=== PATIENT | female | born 1995 ===

== ENCOUNTER 2023-01-03 18:57 | Emergency (ER) | payer SELFPAY ==
[2023-01-03 19:00] VITALS: BP 137/78; PULSE 70; RESP 16; TEMP 36.4; O2SAT 100
== END 2023-01-03 22:42 | disposition left against medical advice (07) ==
LOC: ANHED 19:57
PROVIDERS: PCP Physician Assistant
DX: M25.561 Pain in right knee (principal)
CPT/HCPCS: 99199

== ENCOUNTER 2023-03-14 08:02 | Emergency (ER) | payer OTHER, SELFPAY ==
[2023-03-14 08:09] VITALS: BP 132/69; PULSE 81; RESP 16; TEMP 36.4; O2SAT 97
--- NOTE | 2023-03-14 08:12 | ED.URI ---
HPI - URI/Sore Throat General Chief Complaint: Upper Respiratory Infection Stated Complaint: Cough/Shortness of Breath Time Seen by Provider: 03/14/23 08:15 Source: patient, RN notes reviewed and old records reviewed Mode of arrival: ambulatory Limitations: no limitations History of Present Illness HPI Narrative: 27 year old female presents to [facility] with complaints of cough for the past 2 days with some shortness of breath stated with exertion. Respirations even and nonlabored with no tachypnea,SAO2 97% on room air, patient is nonsmoker. She states that she has been taking DayQuil, NyQuil, Sudafed and Mucinex for her symptoms. Patient reports that she has not had a fever, sore throat or any ear pain, reports post nasal drainage. MD elicited complaint: cough and other (reports some shortness of breath) Pertinent past history: asthma (as child) Onset (ago): day(s) (2) Severity: moderate Able to tolerate fluids by mouth: Yes Treatments prior to arrival: other (DayQuil, NyQuil, sudafed,Mucinex) Related Data Allergies Allergy/AdvReac Type Severity Reaction Status Date / Time No Known Allergies Allergy Verified 03/14/23 08:19 Review of Systems Review of Systems: CONSTITUTIONAL: Denies malaise, chills, sweats, or fever. EYES: Denies visual changes, redness, or discharge. ENT: Reports post nasal rhinorrhea, congestion,no sinus pain, no otalgia and no sore throat. CARDIOVASCULAR: Denies chest pain, palpitations, or edema. RESPIRATORY: Reports cough.?states some dyspnea. GASTROINTESTINAL: Denies abdominal pain, nausea, vomiting, diarrhea SKIN: Denies rash or itching. MUSCULOSKELETAL: Denies myalgia. NEUROLOGIC: Denies headache. All systems reviewed & are unremarkable except as noted in HPI and below PMFSH Past Medical History Medical History (Updated 03/14/23 @ 08:35 by Keyonna Solomon NP) Asthma as child Surgical History Surgical History (Updated 03/14/23 @ 08:36 by Keyonna Solomon NP) H/O eye surgery eye muscle surgery as child Previous section Social History Social History (Updated 03/14/23 @ 08:26 by Keyonna Solomon NP) Smoking status: Never smoker Comments At time of signature, agree with nursing past medical, surgical, social and family history. There is no relevant family history pertinent to the presenting complaint Exam Narrative: GENERAL: Well-appearing, well-nourished, and in no acute distress. HEAD: Normocephalic EYES: PERRLA, conjunctivae clear ENT: Nares clear, turbinates edematous and erythematous, clear discharge. Mucous membranes moist. TM pearly trinh with dull light reflex bilaterally; no tragal tenderness. Oropharynx erythematous without lesions. Tonsils not enlarged and without exudate, no drooling, no hoarseness, no trismus, uvula midline.post nasal drainage NECK: Supple. No lymphadenopathy CHEST: Clear to auscultation, breath sounds equal. No wheezing, rhonchi, rales, or stridor. No respiratory distress, speaks in full sentences.cough noted,SAO2 97% on room air HEART: Regular rate and rhythm. No murmur heard. SKIN: Warm, dry, no rash. NEURO: Alert and oriented x3. PSYCH: Normal mood and affect Course Course Emergency Course: Patient is aware of diagnosis, understands and agrees to treatment plan.? Anticipatory guidance given.? Patient agrees to follow-up as directed and is aware of reasons to seek care at the emergency department. Portions of this record may have been created with voice recognition software Level of Care: Express Care Visit Vital Signs Vital signs: Vital Signs Temperature 36.4 C L 03/14/23 08:09 Pulse Rate 81 03/14/23 08:09 Respiratory Rate 16 03/14/23 08:09 Blood Pressure 132/69 03/14/23 08:09 Pulse Oximetry 97 03/14/23 08:09 Oxygen Delivery Room Air 03/14/23 08:09 Temperature 36.4 C L 03/14/23 08:09 Pulse Rate 81 03/14/23 08:09 Respiratory Rate 16 03/14/23 08:09
== END 2023-03-14 08:32 | disposition home or self-care (01) ==
PROVIDERS: Emergency Provider Registered Nurse; PCP Physician Assistant
DX: J06.9 Acute upper respiratory infection, unspecified (principal); R05.9 Cough, unspecified; J45.909 Unspecified asthma, uncomplicated
CPT/HCPCS: 99213; G0463

== ENCOUNTER 2024-11-09 14:21 | Emergency (ER) | payer OTHER, SELFPAY ==
--- OUTSIDE RECORDS SUMMARY | 2024-11-09 14:22 | XMS_ITS | Encounter Summary ---
Author Organization [facility] Address [address] [place] [address] Phone Care Team Providers Care Car Changer Name Role Phone Eber Matta Primary Care Provider [phone] Eber Matta PAC Unavailable [phone] Kinza Brink APRN, RADIOLOGY SPECIAL PROCEDURE TECH Unavailable Italo Ware MD Unavailable [phone] Jo Bauman APRN, RADIOLOGY SPECIAL PROCEDURE TECH Unavailable Reason for Visit * Reason Comments Medication Refill Encounter Details Date Type Department Care Team (Late st Contact Info) Description 12/01/2022 Refill [facility] - Gastroenterology - [place] [address] [place] [address] Jo Bauman APRN, RADIOLOGY SPECIAL PROCEDURE TECH [address] [place] [address] Medication Refill Social History Tobacco Use Types Packs/Day Years Used Date Smoking Tobacco: Never Smokeless Tobacco: Never Alcohol Use Standard Drinks/Week Comments No 0 (1 standard drink = 0.6 oz pur e alcohol) RARELY Sexually Active Control Partners Comments Yes Male Comments No Sex and Gender Information Value Date Recorded Sex Assigned at Not on file Legal Sex Female 11:47 PM CDT Gender Identity Not on file Sexual Orientation Not on file Occupation Industry Job Start Date Job End Date [employer] Not on file Not on file Not on file COVID-19 Exposure Response Date Recorded In the last 10 days, have yo u been in contact with someone who was confirmed or suspected to have Coronavirus/COVID-19? No / Unsure 11/22/2022 8:19 AM CDT documented as of this encounter Miscellaneous Notes * Telephone Encounter - Gabbie Thompson RN - 12/04/2022 9:38 AM CDT Medication refilled and signed per [facility] chronic medication standing order for pediatric and adult patients. documented in this encounter Plan of Treatment Not on file documented as of this encounter Visit Diagnoses Diagnosis Generalized abdominal pain Abdominal pain, generalized documented in this encounter Care Teams Car Changer Relationship Specialty Start Date End Date Eber Matta PAC [address] [place] [address] PCP - General Physician Salesperson Hearing Aids 01/11/16 Eber Matta PAC [address] [place] [address] Physician Salesperson Hearing Aids 01/11/16 Kinza Brink APRN, RADIOLOGY SPECIAL PROCEDURE TECH [address] [place] [address] Nurse Practitioner Advanced Practice Nurse 01/05/16 Italo Ware MD [address] [address] General Surgery 02/09/16 Jo Bauman APRN, RADIOLOGY SPECIAL PROCEDURE TECH [address] [place] [address] Nurse Practitioner Advanced Practice Nurse 07/11/22 documented as of this encounter
--- OUTSIDE RECORDS SUMMARY | 2024-11-09 14:22 | XMS_ITS | Clinical Summary ---
Author Organization [facility] Office Building [facility] Address [address] [place] [address] Care Team Providers Care Investment Banking Manager Name Role Phone Eber Matta Unavailable [phone] Mimi Tam MD Unavailable [phone] Eber Matta Primary Care Provider [phone] Allergies Active Allergy Reactions Criticality Noted Date Comments Amoxicillin Other (See comments) Low Yeast Infections Penicillin G Other (See comments) Low 01/11/2016 Yeast Infection Penicillins Other (See comments) Low 01/05/2016 Yeast infection Medications ibuprofen (ADVIL,MOTRIN) 600 mg tablet Take 1 tablet (600 mg total) by mouth every 6 (six) hours as needed for pain (pain) 30 tablet 1 07/10/19 21 Active Additional Information Patient not taking.Reported on 05/30/2024 meclizine (ANTIVERT) 25 mg tablet Take 1 tablet (25 mg total) by mouth 3 (three) times a day as needed 06/15/[address] (PROTONIX) 40 mg EC tablet Take 1 tablet (40 mg total) by mouth as needed 08/02/19 23 Active meloxicam (MOBIC) 15 mg tabletIndications: Prepatellar bursitis of right knee,Tendinosis of quadriceps tendon Take 1 tablet (15 mg total) by mouth daily With breakfast for 1-2 weeks then can change to daily as needed 30 tablet 09/01/19 23 Active dicyclomine (BENTYL) 20 mg tablet Take 1 tablet (20 mg total) by mouth every 6 (six) hours as needed 11/11/19 23 Active citalopram (CeleXA) 10 mg tablet Take 2 tablets (20 mg total) by mouth daily 12/27/19 23 Active ondansetron ODT (ZOFRAN-ODT) 8 mg disintegrating tablet DISSOLVE 1 TABLET IN MOUTH EVERY 8 HOURS NEEDED 03/28/20 23 Active cyclobenzaprine (FLEXERIL) 5 mg tablet Take 1 tablet (5 mg total) by mouth 3 (three) times a day as needed for muscle spasms 30 tablet 05/10/19 24 Active Additional Information Patient not taking.Reported on 05/30/2024 methocarbamoL (ROBAXIN) 500 mg tabletIndications: TOS (thoracic outlet syndrome) TAKE 1 TABLET BY MOUTH THREE TIMES DAILY 90 tablet 02/18/20 24 Active Additional Information Patient not taking.Reported on 05/30/2024 estradioL (ESTRACE) 1 mg tablet Take 1 tablet (1 mg total) by mouth daily 30 tablet 1 04/21/20 24 025 Active traMADoL (ULTRAM) 50 mg tabletIndications: Abdominal pain Take 1 tablet (50 mg total) by mouth every 6 (six) hours 20 tablet 05/30/19 25 Active Active Problems Problem Noted Date Diagnosed Date Pelvic pain in female 03/02/2023 Dyspareunia in female 03/02/2023 Epigastric pain 01/05/2016 Resolved Problems Problem Noted Date Diagnosed Date Resolved Date Dysmenorrhea 03/02/2023 06/13/2023 Menorrhagia with irregular cycle 03/02/2023 06/13/2023 Surgical History Surgery Date Site/Laterality Comments EYE SURGERY Bilateral tighten the muscles SECTION 04/30/2013 - 04/29/2014 CHOLECYSTECTOMY CARPAL TUNNEL RELEASE Right REPEAT SECTION 04/30/2020 - 04/29/2021 with lysis of adhesions, uterus to anterior peritoneum LAPAROSCOPIC TOTAL HYSTERECTOMY 04/30/2023 - 04/29/2024 TL-BS - menorrhagia, pain SALPINGECTOMY 04/30/2023 - 04/29/2024 Bilateral with hysterectomy Medical History Medical History Date Comments Anxiety Asthma Migraines Right ankle sprain In Jr High Abnormal Pap smear of cervix Age 17 in . Reports recheck normal. PONV (postoperative nausea and vomiting) Motion sickness GERD (gastroesophageal reflux disease) Irritable bowel syndrome Anemia Family History Medical History Relation Name Comments Endometriosis Father's Sister Breast cancer Maternal Grandmother Breast cancer Maternal Great-Grandmother Breast cancer Other maternal great aunt Alcohol abuse Neg Hx Arthritis Neg Hx Blood Clot Neg Hx Cancer Neg Hx Diabetes Neg Hx Heart disease Neg Hx Hypertension Neg Hx Mental illness Neg Hx Stroke Neg Hx Relation Name Status Comments Father's Sister Maternal Grandmother Maternal Great-Grandmother Other Social History Tobacco Use Types Packs/Day Years Used Date Smoking Tobacco: Never Smokeless Tobacco: Never Tobacco Cessation:Counseling Given: Not Answered Alcohol Use Standard Drinks/Week Comments Yes 0 (1 standard drink = 0.6 oz pur e alcohol) AUDIT-C Answer Date Recorded Q1: How often do you have a drink containing alc ohol? Monthly or less 05/07/2023 Q2: How many drinks containi ng alcohol do you have on a typical day when you are drinking? 1 or 2 05/07/2023 Q3: How often do you have si x or more drinks on one occasion? Never 05/07/2023 Personal Safety Answer Date Recorded Have you ever been in or are you currently in a harmful physical or emotional relationship or is someone making you feel afraid or unsafe? Denies 05/07/2023 Comments No Sex and Gender Information Value Date Recorded Sex Assigned at Not on file Legal Sex Female 1:30 PM VENDING SUPERVISOR Gender Identity Not on file Sexual Orientation Not on file Occupation Industry Job Start Date Job End Date [employer] Not on file Not on file Not on file Obstetrics History Para Term AB IAB SAB Ectopic Multiple Livin g Live Births 2 2 2 0 2 2 Date Outcome GA Total Labor Labor/2nd/3rd Weight Sex Type Anes PTL Vicki A1 A5 Name Clin 2013 Term 39w 0d 3.005 kg (6 lb 10 oz) M CS-LT ranv Livin g Complications:Failure to Pro luke in Second Stage 2020 Term 39w 0d 0h 02m 0h 02m 2.929 kg (6 lb 7.3 oz) M CS-LT ranv Spinal N Livin g 9 9 Kaitlin TAMEZ Geoffr ey Lowell, MD Complications:None Delivery Location:This [facility]) Last Filed Vital Signs Vital Sign Reading Time Taken Comments Blood Pressure 102/60 05/30/2024 1:14 PM VENDING SUPERVISOR Pulse 79 05/07/2023 3:00 PM VENDING SUPERVISOR Temperature 36.8 C (98.3 F) 05/07/2023 3:00 PM VENDING SUPERVISOR Respiratory Rate 16 05/07/2023 3:00 PM VENDING SUPERVISOR Oxygen Saturation 100% 05/07/2023 3:00 PM VENDING SUPERVISOR Inhaled Oxygen Concentration - - Weight 67.6 kg (149 lb) 05/30/2024 1:14 PM VENDING SUPERVISOR Height 149.9 cm (4' 11) 05/07/2023 6:23 AM VENDING SUPERVISOR Body Mass Index 30.09 05/07/2023 6:23 AM VENDING SUPERVISOR Plan of Treatment Health Maintenance Due Date Last Done Comments Depression Screening 1993 Hepatitis C Screening 1993 Varicella Vaccines (2 of 2 - 13+ 2-dose series) 09/07/2006 08/10/2006 HPV Vaccines (2 - 2-dose series) 07/15/2007 01/14/2007 Regular Well Visit/Exam 18-64 2011 Influenza Vaccine (Season Ended) 2024 DTaP/Tdap/Td Vaccine (10 - Td or Tdap) 06/17/2030 06/17/2020, 11/29/2017, 12/17/2013, Additional history exists Hepatitis B Screening Completed 1993 , 1993, 1993 Pneumococcal vaccine <65 Aged Out No longer eligible based on patient's age to complete this topic Insurance Advance Directives For more information, please contact: [phone] * Full Code (Latest Code Status on File) Date Activated Date Inactivated Comments 05/07/2023 11:13 AM 05/07/2023 8:52 PM * Full Code Date Activated Date Inactivated Comments 07/08/2020 4:37 PM 07/10/2020 5:54 PM * Full Code Date Activated Date Inactivated Comments 07/08/2020 10:05 AM 07/08/2020 4:37 PM Full CPR in case of cardiopulmonary arrest Care Teams Investment Banking Manager Relationship Specialty Start Date End Date Eber Matta PA [address] [place] [address] PCP - General Family Practice 06/04/24 Eber Matta PA [address] [place] [address] Family Practice 02/28/22 Mimi Tam MD [address] [place] [address] Plant Maintenance Technician Obstetrics and Gynecology 05/07/23
--- OUTSIDE RECORDS SUMMARY | 2024-11-09 14:22 | XMS_ITS | Encounter Summary ---
Author Organization [facility] Address [address] [facility] [place] [address] Phone Care Team Providers Care Academic Services Coordinator Name Role Phone Eber Matta Primary Care Provider [phone] Eber Matta PAC Unavailable [phone] Kinza Brink APRN, DRENCHER Unavailable Italo Ware MD Unavailable [phone] Jo Bauman APRN, DRENCHER Unavailable Reason for Visit * Reason Comments Medication Refill Encounter Details Date Type Department Care Team (Late st Contact Info) Description 10/28/2023 Refill [facility] - Gastroenterology - [place] [address] [place] [address] Jo Bauman APRN, DRENCHER [address] [place] [address] Medication Refill Social History Tobacco Use Types [...] file Not on file Not on file documented as of this encounter Miscellaneous Notes * Telephone Encounter - Gabbie Thompson RN - 10/29/2023 9:55 AM CDT Medication refilled and signed per [facility] chronic medication standing order for pediatric and adult patients. documented in this encounter Plan of Treatment Not on file documented as of this encounter Visit Diagnoses Diagnosis Gastroesophageal reflux disease, unspecified whether esophagitis present documented in this encounter Care Teams Academic Services Coordinator Relationship Specialty Start Date End Date Eber Matta PAC [address] [place] [address] PCP - General Physician Document Processing Specialist 01/11/16 Eber Matta PAC [address] [place] [address] Physician Document Processing Specialist 01/11/16 Kinza Brink APRN, DRENCHER [address] [place] [address] Nurse Practitioner Advanced Practice Nurse 01/05/16 Italo Ware MD [address] [address] General Surgery 02/09/16 Jo Bauman APRN, DRENCHER [address] [place] [address] Nurse Practitioner Advanced Practice Nurse 07/11/22 documented as of this encounter
--- OUTSIDE RECORDS SUMMARY | 2024-11-09 14:22 | XMS_ITS | Clinical Summary ---
Author Organization [facility] Address [address] [place] [address] Phone Care Team Providers Care Cardiovascular Radiologic Technologist Name Role Phone Eber Matta PAC Primary Care Provider [phone] Eber Matta PAC Unavailable [phone] Kinza Brink RAILROAD OPERATING ENGINEER, TRANSPORT COORDINATOR Unavailable Italo Ware MD Unavailable [phone] [facility] RAILROAD OPERATING ENGINEER, TRANSPORT COORDINATOR Unavailable Allergies Active Allergy Reactions Criticality Noted Date Comments Penicillin G Unknown 01/11/2016 Penicillin V Potassium Unknown 05/17/2021 Penicillins Other (see Comments) 01/05/2016 Yeast infection Medications SUMAtriptan (IMITREX) 25 MG Tablet Take 1 Tab by mouth once as needed for Headaches for up to 1 dose. Use as directed. May repeat dose in 2 hours if headache recurs. 9 Tab 9 Active Additional Information Patient not taking.Reported on 07/11/2022 meloxicam (MOBIC) 15 MG Tablet Take 1 Tab by mouth daily. 10 Tab 9 Active Additional Information Patient not taking.Reported on 04/14/2019 ketorolac (TORADOL) 10 MG Tablet Take 1 Tab by mouth every 6 hours as needed for Moderate or more severe pain. 20 Tab 9 Active Additional Information Patient not taking.Reported on 04/14/2019 metoclopramide (REGLAN) 10 MG Tablet Take 1 Tab by mouth 4 times daily as needed for Nausea - 1st line. 10 Tab 9 Active Additional Information Patient not taking.Reported on 04/14/2019 meclizine (ANTIVERT) 25 MG Tablet Take 1 Tab by mouth 3 times daily as needed for Dizziness. 30 Tab 9 Active Additional Information Patient not taking.Reported on 04/14/2019 HYDROcodone-acet aminophen (NORCO) 5-325 MG Tablet Take 1 Tab by mouth every 6 hours as needed for Moderate or more severe pain. 12 Tab 9 Active Additional Information Patient not taking.Reported on 05/05/2019 ondansetron (ZOFRAN) 4 MG Tablet TAKE 1 TABLET BY MOUTH EVERY 8 HOURS NEEDED FOR NAUSEA 15 Tab 9 Active Additional Information Patient not taking.Reported on 07/11/2022 ibuprofen (MOTRIN) 600 MG Tablet Take 600 mg by mouth. 1 Active Norelgestromin-E th Estradiol (Xulane) 150-35 MCG/24HR PATCH WEEKLY 1 Patch by Transdermal route every 7 days. Active dicyclomine (BENTYL) 20 MG TabletIndication s:Generalized abdominal pain TAKE 1 TABLET BY MOUTH EVERY 6 HOURS NEEDED 120 Tablet 3 Active citalopram (CeleXA) 10 MG Tablet Take 10 mg by mouth daily. 3 Active cyclobenzaprine (FLEXERIL) 5 MG Tablet Take 5 mg by mouth. 4 Active ondansetron (ZOFRAN-ODT) 8 MG TABLET DISPERSIBLE DISSOLVE 1 TABLET IN MOUTH EVERY 8 HOURS NEEDED 3 Active pantoprazole (PROTONIX) 40 MG Tablet Delayed ResponseIndicati ons:Gastroesopha geal reflux disease, unspecified whether esophagitis present Take 1 tablet by mouth once daily 30 Tablet 4 Active Active Problems Problem Noted Date Diagnosed Date Epigastric pain 01/05/2016 Immunizations Immunization Administration Dates Next Due TDAP Vaccine 11/29/2017 Family History Medical History Relation Name Comments Diabetes Father Kidney Stones Father Ulcerative Colitis Mother Relation Name Status Comments Father Alive Mother Alive Social History Tobacco Use Types Packs/Day Years [...] file Not on file Not on file Last Filed Vital Signs Vital Sign Reading Time Taken Comments Blood Pressure 110/74 06/21/2023 9:08 AM SUSTAINMENT LOGISTICS ANALYST Pulse 80 06/21/2023 9:08 AM SUSTAINMENT LOGISTICS ANALYST Temperature 36.6 C (97.8 F) 06/21/2023 9:08 AM SUSTAINMENT LOGISTICS ANALYST Respiratory Rate 16 06/21/2023 9:08 AM SUSTAINMENT LOGISTICS ANALYST Oxygen Saturation 98% 06/21/2023 9:08 AM SUSTAINMENT LOGISTICS ANALYST Inhaled Oxygen Concentration - - Weight 65.9 kg (145 lb 4.8 oz) 06/21/2023 9:08 A M SUSTAINMENT LOGISTICS ANALYST Height 149.9 cm (4' 11) 06/21/2023 9:08 AM SUSTAINMENT LOGISTICS ANALYST Body Mass Index 29.35 06/21/2023 9:08 AM SUSTAINMENT LOGISTICS ANALYST Plan of Treatment Health Maintenance Due Date Last Done Comments Hepatitis C Virus (HCV) Screening 1993 Human Papillomavirus (HPV) Immunization (2 - 2-dose series) 07/15/2007 01/14/2007 SARS-COV-2 Immunization ( season) 2023 Influenza Immunization (#1) 2024 Td Immunization Every 10 Years (Adults With 1 Tdap) 11/30/2027 11/29/2017, 12/17/2013, 07/26/2012 Respiratory Syncytial Virus (RSV) Immunization (Adult) (1 - 1-dose 75+ series) 2068 Hepatitis B Immunization Completed 994, 1993, 1993 Meningococcal Immunization (ACWY) Aged Out 01/14/2007 No longer eligible based on patient's age to complete this topic DTaP/Tdap/Td Immunization Discontinued 2017, 12/17/2013, 07/26/2012, Additional history exists Pneumococcal Immunization Combined Aged Out No longer eligible based on patient's age to complete this topic Rotavirus Immunization Aged Out No lo nger eligible based on patient's age to complete this topic Insurance MEDICAID [facility] Care Teams Cardiovascular Radiologic Technologist Relationship Specialty Start Date End Date Eber Matat, PAC [address] [place] [address] PCP - General Physician Laboratory Worker 01/11/16 Eber Matta, PAC [address] [place] [address] Physician Laboratory Worker 01/11/16 Kinza Brink APRN, TRANSPORT COORDINATOR [address] [place] [address] Nurse Practitioner Advanced Practice Nurse 01/05/16 Italo Ware MD [address] [address] General Surgery 02/09/16 Jo Bauman APRN, TRANSPORT COORDINATOR [address] [place] [address] Nurse Practitioner Advanced Practice Nurse 07/11/22
--- OUTSIDE RECORDS SUMMARY | 2024-11-09 14:22 | XMS_ITS | Referral Summary ---
Author Organization [facility] Medical Office Building [facility] Address [address] [place] [address] Care Team Providers Care Utility Gelatin Maker Name Role Phone Eber Matta Unavailable [phone] Mimi Tam MD Unavailable [phone] Eber Matta Primary Care Provider [phone] Allergies Active Allergy Reactions Criticality Noted Date [...] 06/13/2023 Menorrhagia with irregular cycle 03/02/2023 06/13/2023 Social History Tobacco Use Types Packs/Day Years [...] on file Legal Sex Female 1:30 PM HARNESS MENDER Gender Identity Not on file Sexual Orientation Not on file Occupation Industry Job Start Date Job End Date [employer] Not on file Not on file Not on file Last Filed Vital Signs Vital Sign Reading Time Taken Comments Blood Pressure 102/60 05/30/2024 1:14 PM HARNESS MENDER Pulse 79 05/07/2023 3:00 PM HARNESS MENDER Temperature 36.8 C (98.3 F) 05/07/2023 3:00 PM HARNESS MENDER Respiratory Rate 16 05/07/2023 3:00 PM HARNESS MENDER Oxygen Saturation 100% 05/07/2023 3:00 PM HARNESS MENDER Inhaled Oxygen Concentration - - Weight 67.6 kg (149 lb) 05/30/2024 1:14 PM HARNESS MENDER Height 149.9 cm (4' 11) 05/07/2023 6:23 AM HARNESS MENDER Body Mass Index 30.09 05/07/2023 6:23 AM HARNESS MENDER Plan of Treatment Not on file Insurance [place] [address] [place] [id number] Advance Directives For more information, please contact: [phone] * Full Code (Latest Code Status on File) Date Activated Date Inactivated Comments 05/07/2023 11:13 AM 05/07/2023 8:52 PM * Full Code Date Activated Date Inactivated Comments 07/08/2020 4:37 PM 07/10/2020 5:54 PM * Full Code Date Activated Date Inactivated Comments 07/08/2020 10:05 AM 07/08/2020 4:37 PM Full CPR in case of cardiopulmonary arrest Care Teams Utility Gelatin Maker Relationship Specialty Start Date End Date Eber Matta PA [address] [place] [address] PCP - General Family Practice 06/04/24 Eber Matta PA [address] [place] [address] Family Practice 02/28/22 Mimi Tam MD [address] [place] [address] Tire Changer Aircraft Obstetrics and Gynecology 05/07/23
[2024-11-09 14:26] VITALS: BP 135/76; PULSE 85; RESP 20; TEMP 36.7; O2SAT 100
--- NOTE | 2024-11-09 14:38 | ED.GENADULT ---
HPI - General Adult General Chief complaint: Dental/Oral Stated complaint: Tooth pain Time Seen by Provider: 11/09/24 14:40 Source: patient Mode of arrival: ambulatory Limitations: no limitations History of Present Illness HPI narrative: 29-year-old female patient presents to [facility] with complaints of right-sided lower dental pain times 2-3 days. Patient states that she had the tooth pulled on Sunday that was the cane away. Patient states that they told her to take some Tylenol and ibuprofen but not put her on any antibiotics. Patient states she has been clean cleaning it with the mouthwash they have provided her and was given a new toothbrush. Patient denies any fevers body aches or chills but states that the pain has increased and when she looked in there today and is concerned that it might be infected. When asked patient about the allergies to antibiotics patient states that her reaction to penicillins is that she gets a yeast infection. Discussed with patient that that is not considered an allergy but a side effect. Related Data Allergies Allergy/AdvReac Type Severity Reaction Status Date / Time No Known Allergies Allergy Verified 11/09/24 14:48 Review of Systems Review of Systems: CONSTITUTIONAL: Denies fever, chills, or sweats. EYES: Denies visual changes, redness, or discharge. ENT: Denies rhinorrhea, congestion, sore throat, or otalgia. Positive right lower oral cavity pain CARDIOVASCULAR: Denies chest pain, palpitations, or edema. RESPIRATORY: Denies cough or dyspnea. GASTROINTESTINAL: Denies abdominal pain, nausea, vomiting, or diarrhea. GENITOURINARY: Denies dysuria or hematuria. SKIN: Denies rash or itching. MUSCULOSKELETAL: Denies back pain, joint pain, or myalgia. NEUROLOGIC: Denies headache, numbness, or weakness. PSYCHIATRIC: Denies anxiety or depression. [facility] Past Medical History Medical History Asthma as child Surgical History Surgical History H/O eye surgery eye muscle surgery as child Previous section Social History Social History Smoking status: Never smoker Comments At the time of my signature I agree with nursing past medical history, surgical, social, and family history. There is no relevant family history pertinent to the presenting complaint. Exam Narrative: GENERAL: Well-appearing, well-nourished, and in no acute distress. HEAD: Normocephalic, atraumatic. EYES: PERRLA and EOMI. ENT: Nares clear, no rhinorrhea or epistaxis. Mucous membranes moist. patient has a tooth missing on the bottom right 2nd molar. There is some surrounding erythema, tenderness and some discharge noted from the site. NECK: Supple. No lymphadenopathy CHEST: Clear to auscultation. No respiratory distress. HEART: Regular rate and rhythm. No murmur heard. Normal peripheral pulses. ABDOMEN: Soft, nontender, nondistended, normal active bowel sounds. EXTREMITIES: Normal range of motion. No edema. SKIN: Warm, dry, no rash. NEURO: No focal deficits. Alert and oriented x3. Course Course Level of Care: Express Care Visit Vital Signs Vital signs: Vital Signs Temperature 36.7 C 11/09/24 14:26 Pulse Rate 85 11/09/24 14:26 Respiratory Rate 20 11/09/24 14:26 Blood Pressure 135/76 11/09/24 14:26 Pulse Oximetry 100 11/09/24 14:26 Oxygen Delivery Room Air 11/09/24 14:26 Temperature 36.7 C 11/09/24 14:26 Pulse Rate 85 11/09/24 14:26 Respiratory Rate 20 11/09/24 14:26 Blood Pressure 135/76 11/09/24 14:26 Pulse Oximetry 100 11/09/24 14:26 Oxygen Delivery Room Air 11/09/24 14:26 Vital signs reviewed. Medical Decision Making MDM Narrative Medical decision making narrative: Discussed with patient that we will go ahead and prescribe her an antibiotic it will be a penicillin since those are the best once at work in the mouth. Again explained patient how antibiotics work and that it is very calm in to get yeast infections after taking an antibiotic. We will provide her some fluconazole to decrease that risk and highly recommend that she start taking some probiotics to decrease this risk as well. Discussed with patient to take Tylenol and ibuprofen as needed for pain and continue to use the mouthwash including the mouth to prevent infection. Patient needs to call her dentist tomorrow to schedule follow-up. Patient verbalized understanding denies any other questions or concerns at this time. Differential Diagnosis Differential Diagnosis: Differential diagnosis: Dental caries, periodontal disease, avulsed tooth, tooth infections, mandibular infection, Néstor's angiana, upper tooth infection, dry socket, gingivitis, acute necrotizing ulcerative gingivitis, sialolithiasis. Vital Signs Vital Signs: Vital Signs Temperature 36.7 C 11/09/24 14:26 Pulse Rate 85 11/09/24 14:26 Respiratory Rate 11/09/24 14:26 Blood Pressure 135/76 11/09/24 14:26 Pulse Oximetry 100 11/09/24 14:26 Oxygen Delivery Room Air 11/09/24 14:26 Temperature 36.7 C 11/09/24 14:26 Pulse Rate 85 11/09/24 14:26 Respiratory Rate 11/09/24 14:26 Blood Pressure 135/76 11/09/24 14:26 Pulse Oximetry 100 11/09/24 14:26 Oxygen Delivery Room Air 11/09/24 14:26 Critical Care Time Critical Care Time Critical Care Time: No Discharge Plan Discharge Clinical Impression: Toothache, Dental caries Fracture of tooth Qualifiers: Encounter type: initial encounter Fracture type: open Qualified Code(s): S02.5XXB - Fracture of tooth (traumatic), initial encounter for open fracture Patient Disposition: Home Condition: Stable Instructions: Antibiotic Form, Toothache (ED) Additional Instructions: Antibiotic as directed Avoid temperature extremes May apply heat or ice to the face Gentle brushing and flossing Alternate Tylenol and ibuprofen as needed for pain Follow-up with the dentist as soon as possible Take the fluconazole after you have completed the antibiotic to decrease risk of a yeast infection. May also take [id number] probiotics to decrease risk of yeast infection Patient Language: [place] Prescriptions: New amoxicillin-pot clavulanate 875-125 mg tablet 1 tablet PO Q12H 10 Days Qty: 20 0RF fluconazole 150 mg tablet 150 mg PO ONCE Qty: 1 0RF Rx Instructions: as a single dose, take after antibiotic is finished Follow-up/Referrals: Sigrid,ARIELA Cummins [Primary Care Provider] - Stand Alone Forms: Work/School Release IP Time of Disposition: 14:49
== END 2024-11-09 14:52 | disposition home or self-care (01) ==
PROVIDERS: Emergency Provider Nurse Practitioner Family; PCP Physician Assistant
DX: K08.89 Other specified disorders of teeth and supporting structures (principal); K02.9 Dental caries, unspecified; S02.5XXB Fracture of tooth (traumatic), initial encounter for open fracture; X58.XXXA Exposure to other specified factors, initial encounter
CPT/HCPCS: 99213; G0463